=== PATIENT | female | born 1995 | race African-American/Black ===

== ENCOUNTER 2018-05-03 23:52 | Emergency (ER) | payer SELFPAY ==
[~2018-05-03] VITALS: Ht 157.5 cm; Wt 108.9 kg
[2018-05-04 00:50] VITALS: BP 138/76
== END 2018-05-04 01:28 | disposition left against medical advice (07) ==
LOC: EDBD 23:52 → ER 23:54
DX: R07.89 Other chest pain (principal); M54.2 Cervicalgia; Z53.21 Procedure and treatment not carried out due to patient leaving prior to being seen by health care provider